=== PATIENT | male | born 1985 | race Two or more races ===

== ENCOUNTER 2017-05-22 18:33 | Inpatient (IN) | payer OTHER ==
[~2017-05-22] VITALS: Ht 167.6 cm; Wt 64.9 kg
--- NOTE | ~2017-05-22 | PN ---
Unit #: [id number] #: [id number] Patient: ANTHONY DONOHUE [id number] [facility] [address] [place] [address] [id number] MR#: [id number] NAME: ANTHONY DONOHUE ROOM: P209 Age: 31 Sex: M Admission Date: 05/22/2017 : 1985 Attending Physician: Ryan Wylie M.D. Admitting Physician: Ryan Wylie M.D. Primary Care Physician: Primary Care Physician Jane HAYES PROGRESS NOTES DATE 05/25/2017 DISCUSSION The patient is again abed today and does not arouse for interview. Staff reports no management issues. Dictated by... Ryan Wylie M.D. CB/robert TD: 05/25/2017 22:39 JOB #: [id number] [facility] PROGRESS NOTES Page 1 of 1 X Ryan Wylie MD X PROGRESS NOTE
--- NOTE | ~2017-05-22 | PN ---
Unit #: [id number] #: [id number] Patient: ANTHONY DONOHUE [id number] [facility] [address] [place] [address] [id number] MR#: [id number] NAME: ANTHONY DONOHUE ROOM: P209 Age: 31 Sex: M Admission Date: 05/22/2017 : 1985 Attending Physician: Ryan Wylie M.D. Admitting Physician: Ryan Wylie M.D. Primary Care Physician: Primary Care Physician Jane HAYES PROGRESS NOTES DATE 05/24/2017 DISCUSSION The patient is abed, resting comfortably today. Staff reports no management issues though reports that he continues to endorse positive hopelessness and suicidal ideation. His Lexapro trial is underway. Dictated by... Ryan Wylie M.D. CB/bzcat TD: 05/24/2017 12:59 JOB #: [id number] [facility] PROGRESS NOTES Page 1 of 1 X Ryan Wylie MD PROGRESS NOTE
--- NOTE | ~2017-05-22 | PA ---
Unit #: [id number] #: [id number] Patient: ANTHONY DONOHUE [id number] [facility] [address] [place] [address] [id number] MR#: [id number] NAME: ANTHONY DONOHUE ROOM: P209 Age: 31 Sex: M Admission Date: 05/22/2017 : 1985 Date of Assessment: 05/23/2017 Attending Physician: Ryan Wylie M.D. Admitting Physician: Ryan Wylie M.D. Primary Care Physician: Primary Care Physician No PSYCHIATRIC ASSESSMENT IDENTIFYING INFORMATION The patient is a 31-year-old white male admitted to the [address] [place] [address] with increasing suicidal ideation. CHIEF COMPLAINT None given. INFORMANT Patient and chart, reliability good. HISTORY OF PRESENT ILLNESS The patient is a 31-year-old white male admitted to the [address] [place] [address] with increasing suicidal ideation related to a relationship breakup which occurred approximately 1 month ago. The patient was diagnosed with HIV approximately 1 year ago and now resides at [facility]. He does identify himself as homosexual. The patient reports positive suicidal ideation. He was treated at [facility] in the past and was prescribed Effexor. He reports that he had a difficult time going off his medication and does not wish to restart it. He does state that he wishes to try Wellbutrin which he has "heard good things." The patient is currently endorsing positive suicidal ideation. He does seem to minimize his substance abuse though the chart seems to indicate history of cocaine and amphetamine abuse as well as cannabis use. He continues to endorse hopelessness and suicidal ideation when seen today. He also complains of some sleep rate reversal. PAST PSYCHIATRIC HISTORY As above. PAST MEDICAL HISTORY Significant for his HIV positive status. MEDICATIONS Triumeq. ALLERGIES None. FAMILY HISTORY The patient's mother was a cocaine addict. SOCIAL HISTORY The patient currently resides at [facility]. He is not presently employed. He reports substance use as noted previously and is a smoker. Unit #: [id number] #: [id number] Patient: ANTHONY DONOHUE MENTAL STATUS EXAMINATION Examination at this time reveals the patient to be a well-developed well-nourished white male appearing stated age. He is in no apparent physical distress at the time of examination. He is awake, alert, and oriented in all spheres. His mood is dysphoric, his affect constricted. Speech is generally well-coherent. There are no gross deficits in memory or cognition noted. Intelligence is judged to be in the average range based on fund of knowledge. The patient is cooperative throughout the interview. He is currently endorsing positive suicidal ideation. He denies homicidal ideation. He denies any psychotic symptoms. His judgment and insight appear to be reasonably intact. ASSETS AND LIABILITIES The patient's assets: Motivation for change. Liabilities: Ongoing substance use, health issues. DIAGNOSTIC IMPRESSION 1. Major depressive disorder, recurrent, moderate. 2. Cannabis use disorder. 3. Cocaine use disorder. 4. Amphetamine use disorder. 5. HIV positive. TREATMENT PLAN The patient remains hospitalized for safety and stabilization. We will begin a trial of Wellbutrin XL 150 mg q.a.m., but the patient is sternly warned regarding the potential interaction of this medication with substances of abuse. ESTIMATED LENGTH OF STAY 5 to 7 days with followup to take place through the auspices of [facility]. Dictated by... Ryan Wylie M.D. SHADI/mady TD: 05/23/2017 15:21 JOB #: [id number] PSYCHIATRIC ASSESSMENT Page 1 of 1 X Ryan Wylie MD X PSYCHIATRIC ASSESSMENT
--- NOTE | ~2017-05-22 | HP ---
Unit #: [id number] #: [id number] Patient: YOSVANY DONOHUE [id number] [place] [address] [id number] MR#: [id number] NAME: YOSVANY DONOHUE ROOM: P209 Age: 31 Sex: M Admission Date: 05/22/2017 : 1985 Attending Physician: Ryan Wylie M.D. Admitting Physician: Ryan Wylie M.D. Primary Care Physician: Primary Care Physician No HISTORY AND PHYSICAL HISTORY OF PRESENT ILLNESS Yosvany is a 31 year old admitted to [address] [place] [address] because of his polysubstance abuse which includes IV methamphetamine. PAST MEDICAL HISTORY 1. Long history of illicit substance abuse to include IV drugs. 2. Positive HIV. 3. History of syphilis. PAST SURGICAL HISTORY Colorectal surgery x3. ALLERGIES No known drug allergies. SOCIAL HISTORY Smokes 1 pack per day. Drinks alcohol frequently and has a history of illicit drug use to include IV drugs. FAMILY HISTORY Medically noncontributory. REVIEW OF SYSTEMS CONSTITUTIONAL: No fever or chills. HEENT: Denies any sore throat, ear pain or runny nose. CARDIOVASCULAR: Denies chest pain, irregular heart rhythm or palpitations. CHEST: Denies shortness of breath or cough. No hemoptysis. GASTROINTESTINAL: Denies nausea, vomiting, diarrhea or chronic constipation. ENDOCRINE: Denies history of increased thirst or urination. No recent significant weight loss or gain. GENITOURINARY: Denies dysuria, frequency, or hematuria. SKIN: Denies any rashes. HEMATOLOGIC: Denies history of increased bleeding or bruising. MUSCULOSKELETAL: Denies any hot, swollen joints. No generalized muscle pain. NEUROLOGIC: Denies problems with vision or speech. No frequent, severe headaches. No numbness, tingling or weakness in any extremities. Denies loss of bladder or bowel control. CURRENT MEDICATIONS 1. Wellbutrin XL. 2. Triumeq 1 tab daily. Unit #: [id number] #: [id number] Patient: YOSVANY DONOHUE 3. Milk of Magnesia p.r.n. 4. Maalox p.r.n. 5. Tylenol p.r.n. 6. Nicotine patch 21 mg daily. PHYSICAL EXAMINATION GENERAL: Alert, thin, in no apparent distress. VITAL SIGNS: Blood pressure 118/74, heart rate 50, respirations 16, temperature 98.6. WEIGHT: 143. HEIGHT: 5 feet 6 inches. SKIN: Warm and dry without rash or lesion. HEENT: Normocephalic. TMs not viewed. Oral and nasal passages clear. Conjunctivae clear. PERRLA. EOMs intact. NECK: Supple without lymphadenopathy or thyromegaly. HEART: Regular rate and rhythm without murmur. LUNGS: Clear. ABDOMEN: Soft, nontender. : Not done. EXTREMITIES: No evidence of cyanosis, clubbing or edema. Moves all without focal deficit. NEUROLOGICAL: Grossly within normal limits. Cranial Nerves: II: Visual dennis are intact. III, IV AND : Extraocular movements are intact. Pupils are equal, round and reactive to light. V: Facial sensation is grossly normal. VII: Facial movements and expression are normal. VIII: Auditory acuity grossly intact. IX, X: Uvula is midline. Phonation is normal. XI: Patient shrugs shoulders and turns head normally. XII: Tongue protrudes in the midline. Sensory and Motor Function: Sensory and motor sensation is grossly normal. Motor: moves all extremities well. Coordination: Gait is normal. Deep Tendon Reflexes: Intact. IMPRESSION Psychiatric admission. RECOMMENDATIONS PSYCHIATRIC: Per psychiatrist. MEDICAL: See no contraindication to participate in facility's activities. MEDICAL PROGNOSIS Good. MEDICAL CONDITION Stable. Dictated by... Hedy Martinez P.A.-C. for Jaquan Elmore/alice TD: 05/23/2017 22:11 JOB #: [id number] Unit #: [id number] #: [id number] Patient: YOSVANY DONOHUE HISTORY AND PHYSICAL Page 1 of 1 X Hedy Martinez HISTORY AND PHYSICAL
--- NOTE | ~2017-05-22 | DS ---
Unit #: [id number] #: [id number] Patient: ANTHONY DONOHUE [id number] [facility] [address] [place] [address] [id number] MR#: [id number] NAME: ANTHONY DONOHUE ROOM: P209 Age: 31 Sex: M Admission Date: 05/22/2017 : 1985 Discharge Date: 05/26/2017 Attending Physician: Ryan Wylie M.D. Primary Care Physician: Primary Care Physician No DISCHARGE SUMMARY REASON FOR ADMISSION The patient is a 31-year-old, male, admitted with worsening depression and suicidal ideation. HOSPITAL COURSE The patient was admitted to the [address] [place] [address] unit and placed on suicide precautions. His participation within the therapeutic milieu left much to be desired, but the patient with no management problem. He was continued on his previously prescribed and a viral medication was begun on Wellbutrin XL 150 mg daily given his prominent complaints of energy and lack of motivation. He tolerated the medication well and by 05/26/2017, he reported no suicidal ideation. He requested discharge and it was so ordered. FINAL DIAGNOSES Major depressive disorder, recurrent, moderate; human immunodeficiency virus, positive. DISPOSITION ON DISCHARGE The patient is discharged on the following medications: Wellbutrin XL 150 mg daily for depression and Triumeq one tablet daily for HIV. DISCHARGE INSTRUCTIONS No dietary or physical restrictions were placed upon the patient at the time of discharge. FOLLOWUP Followup will take place through the auspices of community mental health and chemical dependency treatment resources. PROGNOSIS The patient's prognosis is considered fair. Dictated by... Ryan Wylie M.D. CB/yamilet TD: 05/26/2017 17:33 JOB #: [id number] Unit #: [id number] #: [id number] Patient: ANTHONY DONOHUE DISCHARGE SUMMARY Page 1 of 1 X Ryan Wylie MD X DISCHARGE SUMMARY
[2017-05-23 10:58] LABS: URINE APPEARANCE CLEAR; URINE BILIRUBIN NEG (NEG); URINE BLOOD NEG (NEG); URINE COLOR YELLOW; URINE GLUCOSE NEG (NEG); URINE KETONE NEG (NEG); URINE LEUKOCYTE ESTERASE NEG (NEG); URINE NITRATE NEG (NEG); URINE PH 5.5 (5-8); URINE PROTEIN NEG (NEG); URINE SPECIFIC GRAVITY 1.021 (1.003-1.035); URINE UROBILINOGEN 0.2 MG/DL (NEG)
[2017-05-23 11:15] LABS: AMPHETAMINE POS (NEG); BARBITURATES NEG (NEG); BENZODIAZEPINES NEG (NEG); COCAINE POS (NEG); MARIJUANA NEG (NEG); OPIATES NEG (NEG); TRICYCLIC ANTIDEPRESSANTS NEG (NEG); U METHADONE NEG (NEG)
[2017-05-23 12:40] LABS: BASOPHIL% 0.3 % (0-2.5); EOSINOPHIL# 0.1 X10e3 (0-0.7); EOSINOPHIL% 1.4 % (0.0-7.0); HEMOGLOBIN 14.2 gm/dL (13.0-16.0); LYMPHOCYTE# 2.1 X10e3 (1.0-3.5); MEAN CELL VOLUME 90.8 FL (83-96); MEAN CORPUSCULAR HGB CONC 33.1 g/dL (30-36); MONOCYTE# 0.7 X10e3 (0-1.0); MONOCYTE% 10.6 % (3.0-12.0); NEUTROPHIL# 3.9 X10e3 (1.5-7.1); NEUTROPHIL% 56.7 % (40-75); PLATELET COUNT 231 X10e3 (140-420); RED BLOOD COUNT 4.74 X10e (3.90-5.60); RED CELL DISTRIBUTION WIDTH 14.2 % (11.0-15.5); WHITE BLOOD COUNT 6.8 X10e3 (4.0-10.5)
[2017-05-23 12:47] LABS: DIFF IND NO
[2017-05-23 12:56] LABS: ALBUMIN SERUM 4.4 g/dL (3.5-5.0); BILIRUBIN,TOTAL 0.5 mg/dL (0.2-2.0); CALCIUM SERUM 9.5 mg/dL (8.4-10.2); GLOM FILT RATE Estimated 99.9 mL/min (>60); POTASSIUM 4.4 mmol/L (3.5-5.1); PROTEIN TOTAL SERUM 7.4 g/dL (6.0-8.3)
== END 2017-05-26 15:05 | DRG 885 ==
LOC: P2S 20:29
PROVIDERS: Specialist
DX: F33.1 Major depressive disorder, recurrent, moderate (principal); R45.851 Suicidal ideations; Z21 Asymptomatic human immunodeficiency virus [HIV] infection status
CPT/HCPCS: 80053; 80307; 81003; 85025